=== PATIENT | female | born 1970 | race Caucasian/White ===

== ENCOUNTER → 2018-11-05 09:00 | Outpatient (CLI) | payer BC, SELFPAY ==
--- NOTE | 2018-11-05 09:16 | US_ITS ---
STUDY: RENAL ULTRASOUND - COMPLETE REASON FOR EXAM: Female, 47 years old. Recurrent urinary tract infections. TECHNIQUE: Ultrasound evaluation of the kidneys was performed with real-time and static mcdonough-scale imaging. COMPARISON: None. FINDINGS: RIGHT KIDNEY: 11.4 x 4.4 x 4.7 cm. Normal cortical thickness 1.1 cm, normal cortical echotexture. There is no mass, cyst, calculus or hydronephrosis. LEFT KIDNEY: 11.5 x 4.7 x 5.3 cm. Normal cortical thickness 1.3 cm, normal cortical echotexture. There is no mass, cyst, calculus or hydronephrosis. BLADDER: Normal caliber, contour and wall thickness. Prevoid 42 mL. Postvoid 0 mL. No postvoid residual. US/Kidney and Bladder IMPRESSION: Normal ultrasound of the kidneys and urinary bladder. Electronically Signed: Doc Holder MD at 9:58 EDT Tel , Service support ,
== END ==
PROVIDERS: Referring Provider Urology; Visit Provider Urology
DX: N39.0 Urinary tract infection, site not specified (principal)
CPT/HCPCS: 76770